=== PATIENT | female | born 1960 | race Caucasian/White ===

== ENCOUNTER → 2017-08-25 | Day surgery (SDC) | payer BC ==
--- NOTE | 2017-08-23 16:32 | MH ---
cc: Marjan ADORNO M.D. DATE OF ADMISSION: 08/25/2017 ADMISSION DIAGNOSIS Torn medial meniscus right knee, now being admitted for arthroscopy right knee. HISTORY OF PRESENT ILLNESS This is a pleasant 56-year-old female who is being admitted today for arthroscopy right knee due to torn medial meniscus. OTHER PAST HISTORY The patient has history of no medical problems and no surgeries. MEDICATION She does take Latuda 120 mg tablets a day. REVIEW OF SYSTEMS Noncontributory. FAMILY HISTORY Noncontributory. SOCIAL HISTORY She does smoke cigarettes but does not drink. ALLERGIES She has allergies to BACTRIM AND PENICILLIN. PHYSICAL EXAMINATION GENERAL: We find a 56-year-old female, well-developed, well-nourished, oriented x3, complaining of pain in her right knee. VITAL SIGNS: Blood pressure 110/70, pulse 82 and regular, respirations 16, temperature 97.8, pulse oximetry 98% on room air. HEENT: Eyes PERRLA, EOMI. Ears, nose, mouth clear. NECK: Supple. LUNGS: Clear. HEART: Regular rate. ABDOMEN: Soft. Positive bowel sounds. Nontender. EXTREMITIES: Reveal the right knee to be tender over the medial joint margin. Neurovascularly intact to her toes. IMPRESSION AT THIS TIME Torn medial meniscus, right knee. PLAN Admission for arthroscopy right knee today. The patient given prescription for postoperative pain control in the office. J. MD JUDY Dean/TLL /3:32 PM /3:43 PM
[~2017-08-25] VITALS: Ht 157.5 cm; Wt 70.0 kg
[~2017-08-25] MED LIST: ACETAMINOPHEN 1000 MG/100 ML 100 ML IV ONE; ACETAMINOPHEN/HYDROcodone 325 MG/5 MG TAB ONE; BUPIVACAINE HCL PF 0.25% 30 ML VIAL ONE; CEPH-460 PO; CHLORHEXIDINE GLUCONATE 4% SOLN 120 ML BTL TOPICAL SCH; DEXAMETHASONE SOD PHOS 4 MG/ML VIAL ONE; FAMOTIDINE 20 MG/2 ML VIAL ONE; LACTATED RINGER'S 1000 ML IV PRN; LURA20TA PO; METOPROLOL TARTRATE 25 MG TAB PO PRN; MIDAZOLAM HCL 2 MG/2 ML VIAL ONE; MULTTAB67 PO; SODIUM CHLORID 0.9% 500 ML IV PRN; ceFAZolin 2 GM PREMIX 50 ML IV SCH
[2017-08-25] MEDS: CHLORHEXIDINE GLUCONATE 2 % 1 PACK (2 CLOTHS) TOPICAL PRN (07:45)
[2017-08-25] MEDS: POVIDONE IODINE 5% (ANTISEPSIS KIT) 4 APPLICATIONS EACH NARE PRN (08:25)
[2017-08-25 11:05] VITALS: PULSE 68
[2017-08-25 12:50] VITALS: BP 111/70; PULSE 83; RESP 16; TEMP 97.3; O2SAT 97
--- NOTE | 2017-08-25 18:38 | MP ---
cc: Marjan ADORNO DATE OF SURGERY 08/25/2017 PREOPERATIVE DIAGNOSIS Complex tear medial meniscus right knee. POSTOPERATIVE DIAGNOSIS 1. Complex tear medial meniscus right knee. 2. Chondromalacia medial femoral SURGERY PERFORMED Arthroscopy with excision of torn medial meniscus and ArthroCare shaving of the weightbearing surface of the medial femoral condyle chondromalacia. SURGEON Dr. Marjan Adorno HOME LENDING OFFICER SUN Field ANESTHESIA LMA PROCEDURE IN DETAIL The patient was brought to the operating room and placed on the operating room table in the supine position. After successful induction of general anesthesia, the patient's right leg was prepped and draped in the usual manner. The knee was then placed in a knee willis and tightened. Arthroscopic examination was then performed by making a stab wound over the proximal superior and medial aspect of the patellofemoral joint for insertion of the inflow cannula and fluid, followed by stab wounds over the medial and lateral joint margins respectively for insertion of the arthroscope, shaver and probe. Arthroscopic examination was then performed which revealed intact lateral compartment, intact patellofemoral joint, intact anterior cruciate. The medial compartment found to have a large complex tear of the medial meniscus extending from the medial side all the way posterior which was removed using ArthroCare cutter shaver probe to afford a smooth surface. The undersurface of the medial femoral condyle weightbearing area was found to have grade 2 chondromalacia, shaved smooth using the ArthroCare system. The rest of the medial compartment found to be intact. The wound irrigated copiously with lactated Ringer's solution. Excess fluid removed. 10 mL of 0.25% Marcaine plain was inserted into knee joint. Skin approximated with interrupted 3-0 nylon suture. Wet and then dry dressing applied to the wound followed by Xeroform, sterile dressing, thigh-high Marco Antonio wrap. No tourniquet utilized. Estimated blood loss 5 mL. Sponge and suture count were correct. Armani GARSIA was present during the entire procedure to include patient positioning and the procedure. The medical necessity of a nurse practitioner first cook was indicated in this case due to the surgical complexity of the case itself. During the surgical case, the certified ophthalmic surgical assistant was working the back table while my certified ophthalmic surgical assistant SUN was directly assisting me. J. MD JUDY Dean/ /10:55 AM /6:27 PM
--- NOTE | 2017-08-26 09:31 | EKG ---
Date Performed: 08/25/2017 Time Performed: 08:30:14 PTAGE: 56 years EKG: Sinus rhythm POSSIBLE LEFT ATRIAL ENLARGEMENT POSSIBLE RIGHT VENTRICULAR CONDUCTION DELAY BORDERLINE ECG NO PREVIOUS TRACING DOCTOR: Benjie Aguilar Interpretating Date/Time 08/26/2017 09:30:34
== END | disposition home or self-care (01) ==
LOC: PHSDC 07:16
PROVIDERS: ATTEND Surgery
DX: S83.241A Other tear of medial meniscus, current injury, right knee, initial encounter (principal); R94.31 Abnormal electrocardiogram [ECG] [EKG]; E78.5 Hyperlipidemia, unspecified; F17.210 Nicotine dependence, cigarettes, uncomplicated; Z01.812 Encounter for preprocedural laboratory examination; Z88.0 Allergy status to penicillin
CPT/HCPCS: 01400; 29881; 36415; 80053; 81001; 85027; 85610; 85730; 93005; J0131; J1100; J2250; J7120